=== PATIENT | male | born 1950 | race Caucasian/White ===

== ENCOUNTER 2016-09-18 12:35 | Day surgery (SDC) | payer BC ==
[~2016-09-18] VITALS: Ht 175.3 cm; Wt 90.7 kg
[~2016-09-18 12:35] MED LIST: TYLENOL EXTRA500 MG PO
[2016-09-18 13:23] VITALS: BP 153/81
[2016-09-18 17:05] VITALS: BP 120/76
== END 2016-09-18 17:50 | disposition home or self-care (01) ==
LOC: SDC 12:35
DX: H35.722 Serous detachment of retinal pigment epithelium, left eye (principal); I10 Essential (primary) hypertension; Z87.891 Personal history of nicotine dependence
CPT/HCPCS: J0330; J0690; J1100; J2250; J2405; J3010